=== PATIENT | male | born 1930 | race Caucasian/White ===

== ENCOUNTER 2020-05-11 16:02 | Inpatient (IN) | payer OTHER, MEDICARE ==
[~2020-05-11] VITALS: Ht 182.9 cm; Wt 82.1 kg
[2020-05-11 16:49] LABS: BASOPHILS ABSOLUTE AUTO 0.03 K/mm3 (0.00-0.23); BASOPHILS PERCENT AUTO 1 % (0-2); EOSINOPHILS ABSOLUTE AUTO 0.04 K/mm3 (0.00-0.68); EOSINOPHILS PERCENT AUTO 1 % (0-6); Hematocrit 31.1 % (37.0-53.0); Hemoglobin 10.2 g/dL (13.5-17.5); IMMATURE GRAN ABSOLUTE AUTO 0.02 K/mm3 (0.00-0.10); IMMATURE GRAN PERCENT AUTO 0 % (0-1); LYMPHOCYTES ABSOLUTE AUTO 1.07 K/mm3 (0.84-5.20); LYMPHOCYTES PERCENT AUTO 17 % (21-46); MONOCYTES ABSOLUTE AUTO 0.53 K/mm3 (0.16-1.47); MONOCYTES PERCENT AUTO 8 % (4-13); Mean Corpuscular HGB 35.2 pg (26.0-34.0); Mean Corpuscular HGB Conc 32.8 g/dL (31.5-36.5); Mean Corpuscular Volume 107 fL (80-100); Mean Platelet Volume 10.3 fL (9.1-12.4); NEUTROPHILS ABSOLUTE AUTO 4.67 K/mm3 (1.96-9.15); NEUTROPHILS PERCENT AUTO 74 % (41-73); Platelet Count 147 K/mm3 (150-400); RDW Coefficient Variation 12.3 % (11.7-14.2); RDW Standard Deviation 48.6 fL (35.1-46.3); White Blood Cell Count 6.36 K/mm3 (4.00-11.30)
[2020-05-11 17:11] LABS: Alanine Aminotransfer (ALT/SGP 13 U/L (12-78); Albumin, Blood 3.7 g/dL (3.4-5.0); Albumin/Globulin Ratio 1.1 (0.8-1.8); Alk Phos 75 U/L (50-136); Anion Gap 8 mmol/L (6-16); Aspartate Aminotrans (AST/SGOT 15 U/L (12-37); Bilirubin, Total 0.5 mg/dL (0.1-1.0); Blood Urea Nitrogen 41 mg/dL (8-24); Bun/Creatinine Ratio 9.3 (12.0-20.0); CO2, Blood 18 mmol/L (21-32); Calcium, Blood 9.1 mg/dL (8.5-10.1); Chloride, Blood 116 mmol/L (98-108); Creatinine, Blood 4.39 mg/dL (0.60-1.20); Globulin, Blood 3.4 g/dL (2.2-4.0); Glomerular Filtration Rate 14 (60-); Glucose, Blood 130 mg/dL (70-99); Potassium, Blood 4.9 mmol/L (3.5-5.5); Sodium, Blood 142 mmol/L (136-145); Total Protein, Blood 7.1 g/dL (6.4-8.2); Troponin I <0.015 ng/mL (0.000-0.040)
[2020-05-11 17:54] LABS: Magnesium, Blood 1.9 mg/dL (1.6-2.4); Phosphorus, Blood 3.2 mg/dL (2.5-4.9)
[2020-05-11 21:00] LABS: Magnesium, Blood 2.1 mg/dL (1.6-2.4); Phosphorus, Blood 3.4 mg/dL (2.5-4.9); Uric Acid, Blood 5.6 mg/dL (3.5-7.2)
--- NOTE | 2020-05-12 04:27 | NUR ---
DIRECTOR OPERATING ROOM SUMMARY PT ADMITTED FROM ED THIS SHIFT. A&OX4, ABLE TO MAKE NEEDS KNOWN, PLEASANT AND COOPERATIVE TO CARE. NO C/O PAIN OR ANY DISCOMFORT THIS SHIFT. DENIES CP, SOB, OR N&V. CALM AND RESTED T/O SHIFT. PT USES URINAL, DENIES DYSURIA. PT IS A 1 PERSON STANDBY ASSIST. BED AT LOWEST POSITION, AND CALL LIGHT WITHIN REACH.
[2020-05-12 05:13] LABS: BASOPHILS ABSOLUTE AUTO 0.02 K/mm3 (0.00-0.23); BASOPHILS PERCENT AUTO 0 % (0-2); EOSINOPHILS ABSOLUTE AUTO 0.19 K/mm3 (0.00-0.68); EOSINOPHILS PERCENT AUTO 4 % (0-6); Hemoglobin 8.2 g/dL (13.5-17.5); IMMATURE GRAN ABSOLUTE AUTO 0.01 K/mm3 (0.00-0.10); IMMATURE GRAN PERCENT AUTO 0 % (0-1); LYMPHOCYTES ABSOLUTE AUTO 1.64 K/mm3 (0.84-5.20); LYMPHOCYTES PERCENT AUTO 31 % (21-46); MONOCYTES PERCENT AUTO 13 % (4-13); Mean Corpuscular HGB Conc 32.8 g/dL (31.5-36.5); Mean Corpuscular Volume 107 fL (80-100); Mean Platelet Volume 10.9 fL (9.1-12.4); NEUTROPHILS ABSOLUTE AUTO 2.67 K/mm3 (1.96-9.15); NEUTROPHILS PERCENT AUTO 51 % (41-73); Platelet Count 146 K/mm3 (150-400); RDW Coefficient Variation 12.3 % (11.7-14.2); RDW Standard Deviation 47.9 fL (35.1-46.3); Red Blood Cell Count 2.34 M/mm3 (4.30-5.90); White Blood Cell Count 5.23 K/mm3 (4.00-11.30)
[2020-05-12 05:31] LABS: Alanine Aminotransfer (ALT/SGP 9 U/L (12-78); Albumin, Blood 3.1 g/dL (3.4-5.0); Albumin/Globulin Ratio 1.2 (0.8-1.8); Alk Phos 61 U/L (50-136); Anion Gap 5 mmol/L (6-16); Aspartate Aminotrans (AST/SGOT 11 U/L (12-37); Bilirubin, Total 0.4 mg/dL (0.1-1.0); Blood Urea Nitrogen 40 mg/dL (8-24); Bun/Creatinine Ratio 8.9 (12.0-20.0); CO2, Blood 21 mmol/L (21-32); CPK Creatine Kinase 88 U/L (39-308); Calcium, Blood 8.7 mg/dL (8.5-10.1); Chloride, Blood 116 mmol/L (98-108); Creatinine, Blood 4.47 mg/dL (0.60-1.20); Globulin, Blood 2.6 g/dL (2.2-4.0); Glomerular Filtration Rate 13 (60-); Glucose, Blood 103 mg/dL (70-99); Phosphorus, Blood 3.4 mg/dL (2.5-4.9); Potassium, Blood 4.4 mmol/L (3.5-5.5); Sodium, Blood 142 mmol/L (136-145); Total Protein, Blood 5.7 g/dL (6.4-8.2); Uric Acid, Blood 5.9 mg/dL (3.5-7.2)
--- NOTE | 2020-05-13 04:19 | NUR ---
ORACLE APPLICATIONS DEVELOPER SUMMARY PT A&OX4, ABLE TO MAKE NEEDS KNOWN, PLEASANT AND COOPERATIVE TO CARE. PT IS GRAYLING ON R EAR. PT INDEPENDENT IN ROOM. VSS. NO C/O PAIN OR ANY DISCOMFORT. NO C/O CP, SOB, OR N/V. CALM AND RESTED IN BED T/O SHIFT. BED AT LOWEST POSITION. CALL LIGHT WITHIN REACH.
[2020-05-13 05:56] LABS: Hematocrit 23.9 % (37.0-53.0); Hemoglobin 7.9 g/dL (13.5-17.5)
[2020-05-13 06:21] LABS: Albumin, Blood 2.8 g/dL (3.4-5.0); Anion Gap 8 mmol/L (6-16); Blood Urea Nitrogen 44 mg/dL (8-24); Bun/Creatinine Ratio 9.8 (12.0-20.0); CO2, Blood 18 mmol/L (21-32); Calcium, Blood 8.1 mg/dL (8.5-10.1); Chloride, Blood 118 mmol/L (98-108); Glomerular Filtration Rate 13 (60-); Glucose, Blood 79 mg/dL (70-99); Phosphorus, Blood 3.5 mg/dL (2.5-4.9); Potassium, Blood 4.9 mmol/L (3.5-5.5); Sodium, Blood 144 mmol/L (136-145)
[2020-05-13 10:02] LABS: Protein, Urine Quantitative 21.3 mg/dL (0.0-11.9)
--- NOTE | 2020-05-13 12:30 | NUR ---
Met with pt to review his needs and wishes. Pt states he is and has returned here to visit with friends. He is aware of his potential for future medical needs and renal care. We discussed him not wanting dialysis. Review of wha seeing sujatha parsons or a transfer car operator could give him for quality of life. We reviewed advance directive and getting something in place that expresses his wishes. He is not sure he is going to stay in [place]. [facility]ed [facility] and [facility] function monitored regularly. He denied having children of next of kin. Advised he needs an alternate decision maker and support. He feels he may need to go back home and be near extended family. Gve him our contact information and offered to help hem fill out AD before he leaves or he can come in and we can help him.
[2020-05-13] MEDS ORDERED: AMLO10 PO (14:35)
[2020-05-13] MEDS ORDERED: TAMS.4ER PO (14:36)
--- NOTE | 2020-05-13 15:56 | NUR ---
PT DISCHARGED THE PT VERBALIZED UNDERSTANDING OF THE DC INSTRUCTIONS, APPOINTMENT WAS MADE WITH JAVIER HUMPHREYS PRIOR TO DC, THE PT APPEARED TO BE BREATHING EASILY ON RA AT THIS TIME, THE PT WAS TRANSFERED VIA WHEELCHAIR TO MEET HIS RIDE, PRESCRIPTION WERE FAXED TO [facility] REQUESTED, NEW PATIENT PACKET WAS GIVEN TO THE PT BEFORE DC TO FOLLOW UP WITH [facility]
--- NOTE | 2020-05-13 16:42 | NUR ---
echocardiogram complete
[2020-05-14 14:07] LABS: A/G RATIO 1.6 (0.7-1.7); ALPHA-1-GLOBULIN 0.2 g/dL (0.0-0.4); ALPHA-2-GLOBULIN 0.6 g/dL (0.4-1.0); BETA GLOBULIN 0.7 g/dL (0.7-1.3); GAMMA GLOBULIN 0.6 g/dL (0.4-1.8); IMMUNOGLOBULIN A, QN, SERUM 126 mg/dL (61-437); IMMUNOGLOBULIN G, QN, SERUM 635 mg/dL (603-1613); IMMUNOGLOBULIN M, QN, SERUM 59 mg/dL (15-143); M-SPIKE Not Observed g/dL (Not Observed)
[2020-05-15 10:11] LABS: ANTIGLOMERULAR BM AB 2 units (0-20)
[2020-05-15 11:11] LABS: ANA DIRECT Negative (Negative); ANTIMYELOPEROXIDASE (MPO) ABS <9.0 U/mL (0.0-9.0); ANTIPROTEINASE 3 (PR-3) ABS <3.5 U/mL (0.0-3.5); ATYPICAL PANCA <1:20 titer (Neg:<1:20); CYTOPLASMIC (C-ANCA) <1:20 titer (Neg:<1:20); PERINUCLEAR (P-ANCA) <1:20 titer (Neg:<1:20)
== END 2020-05-13 15:28 | disposition home or self-care (01) | DRG 683 ==
LOC: ER 16:02 → MEDS 16:03 → ENPENDDIS 05-13 12:05 → MEDS 05-13 15:28
PROVIDERS: Emergency Medicine; Internal Medicine Nephrology; Physician Assistant; ADMIT Internal Medicine
DX: N17.9 Acute kidney failure, unspecified (principal); E87.2 Acidosis; I16.1 Hypertensive emergency; I12.9 Hypertensive chronic kidney disease with stage 1 through stage 4 chronic kidney disease, or unspecified chronic kidney disease; N18.4 Chronic kidney disease, stage 4 (severe); G89.29 Other chronic pain; M54.9 Dorsalgia, unspecified; E86.9 Volume depletion, unspecified; D63.1 Anemia in chronic kidney disease; Z87.891 Personal history of nicotine dependence
CPT/HCPCS: 36415; 70450; 71045; 76770; 80053; 80069; 81050; 82550; 82784; 82947; 83735; 84100; 84156; 84165; 84443; 84484; 84550; 85014; 85018; 85025; 86334; 93005; 93010; 93306; 96374; 99285-25; G0103; J0881; J1644; J1650; J7030; J7070

== ENCOUNTER 2020-05-19 09:58 | Emergency (ER) | payer MEDICARE, OTHER ==
[~2020-05-19] VITALS: Ht 175.3 cm; Wt 74.8 kg
[~2020-05-19 09:58] MED LIST: AMLO10 PO; TAMS.4ER PO
[2020-05-19 10:48] LABS: BASOPHILS ABSOLUTE AUTO 0.01 K/mm3 (0.00-0.23); BASOPHILS PERCENT AUTO 0 % (0-2); EOSINOPHILS ABSOLUTE AUTO 0.24 K/mm3 (0.00-0.68); EOSINOPHILS PERCENT AUTO 4 % (0-6); Hematocrit 25.2 % (37.0-53.0); Hemoglobin 8.2 g/dL (13.5-17.5); IMMATURE GRAN ABSOLUTE AUTO 0.03 K/mm3 (0.00-0.10); IMMATURE GRAN PERCENT AUTO 1 % (0-1); LYMPHOCYTES ABSOLUTE AUTO 1.02 K/mm3 (0.84-5.20); LYMPHOCYTES PERCENT AUTO 17 % (21-46); MONOCYTES ABSOLUTE AUTO 0.87 K/mm3 (0.16-1.47); MONOCYTES PERCENT AUTO 14 % (4-13); Mean Corpuscular HGB Conc 32.5 g/dL (31.5-36.5); Mean Corpuscular Volume 111 fL (80-100); Mean Platelet Volume 10.4 fL (9.1-12.4); NEUTROPHILS ABSOLUTE AUTO 3.87 K/mm3 (1.96-9.15); NEUTROPHILS PERCENT AUTO 64 % (41-73); Platelet Count 155 K/mm3 (150-400); RDW Coefficient Variation 12.7 % (11.7-14.2); RDW Standard Deviation 50.4 fL (35.1-46.3); Red Blood Cell Count 2.28 M/mm3 (4.30-5.90); White Blood Cell Count 6.04 K/mm3 (4.00-11.30)
[2020-05-19 10:58] LABS: Albumin, Blood 2.9 g/dL (3.4-5.0); Bilirubin, Total 0.3 mg/dL (0.1-1.0); Bun/Creatinine Ratio 8.2 (12.0-20.0); Calcium, Blood 8.1 mg/dL (8.5-10.1); Creatinine, Blood 4.74 mg/dL (0.60-1.20); Globulin, Blood 2.8 g/dL (2.2-4.0); Potassium, Blood 4.8 mmol/L (3.5-5.5); Total Protein, Blood 5.7 g/dL (6.4-8.2)
[2020-05-19] MEDS ORDERED: Norco 7.5-3251 EACH PO (12:55)
== END 2020-05-19 13:30 | disposition home or self-care (01) ==
LOC: ER 09:58
PROVIDERS: Emergency Medicine
DX: N18.30 Chronic kidney disease, stage 3 unspecified (principal); D53.9 Nutritional anemia, unspecified; M54.5 Low back pain; G89.29 Other chronic pain; Z79.899 Other long term (current) drug therapy; W18.30XA Fall on same level, unspecified, initial encounter
CPT/HCPCS: 72100; 80053; 82272; 82947; 85025; 93005; 93010; 99284-25; A9270-GY